=== PATIENT | male | born 1955 | race African-American/Black ===

== ENCOUNTER 2019-07-18 19:34 | Emergency (ER) | payer OTHER ==
[~2019-07-18] VITALS: Ht 177.8 cm; Wt 113.4 kg
[2019-07-18 19:40] VITALS: Ht 177.8 cm; Wt 113.4 kg
[2019-07-18 21:30] VITALS: BP 114/69
== END 2019-07-18 21:30 | disposition home or self-care (01) ==
LOC: ED 19:34
DX: M10.072 Idiopathic gout, left ankle and foot (principal); M72.2 Plantar fascial fibromatosis; I10 Essential (primary) hypertension
CPT/HCPCS: Q0092